=== PATIENT | female | born 1960 | race Caucasian/White ===

== ENCOUNTER 2019-08-04 13:40 | Emergency (ER) | payer SELFPAY ==
[2019-08-04 14:02] VITALS: BP 148/86; PULSE 93; TEMP 98.8; BMI 26.6
--- NOTE | 2019-08-04 14:43 | PDOC ---
History of Present Illness - General Chief Complaint: Wound Stated Complaint: INFECTION IN INDEX FINGER Time Seen by Provider: 08/04/19 14:24 - History of Present Illness Initial Comments: 08/04/19 14:39 59-year-old female with no comorbidities presents for evaluation of left second finger pain x4 days without systemic symptoms Past History - Past Medical History Allergies/Adverse Reactions: Allergies Allergy/AdvReac Type Severity Reaction Status Date / Time No Known Allergies Allergy Verified 08/04/19 13:45 Home Medications: Ambulatory Orders Oxycodone HCl/Acetaminophen [Percocet 5/325 -] 1 - 2 tab PO Q4H #20 tablet 04/08 Tamsulosin HCl [Flomax -] 0.4 mg PO DAILY #30 capsule 04/08/15 Cephalexin [Keflex] 500 mg PO QID #40 capsule 08/04/19 Sulfamethoxazole/Trimethoprim [Bactrim Ds -] 1 tab PO BID #14 tablet 08/04/19 COPD: No - Immunization History Immunization Up to Date: Yes - Psycho Social/Smoking Cessation Hx Smoking History: Never smoked Have you smoked in the past 12 months: No Hx Alcohol Use: No Drug/Substance Use Hx: No Substance Use Type: None Review of Systems - Review of Systems Musculoskeletal: Yes: See HPI *Physical Exam - Vital Signs Last Vital Signs Temp Pulse Resp BP Pulse Ox 98.8 F 93 H 18 148/86 99 08/04/19 13:45 08/04/19 13:45 08/04/19 13:45 08/04/19 13:45 08/04/19 13:45 - Physical Exam Comments: 08/04/19 14:40 There is erythema warmth tenderness with surrounding induration at the radial aspect of the left second finger just radial to the lateral nail fold. There is a large area of fluctuance no gross sensorimotor deficits the erythema does not extend proximally to the DIPJ. Neurovascular intact Medical Decision Making - Medical Decision Making 08/04/19 14:41 Under aseptic technique 5 cc of 1% lidocaine without epinephrine was used for digital block and 11 blade was used to incise the area of fluctuance a small amount of purulent material was expressed a dry sterile dressing was placed this was tolerated well Discharge - Discharge Information Problems reviewed: Yes Clinical Impression/Diagnosis: Paronychia Condition: Stable Disposition: HOME - Admission No - Additional Discharge Information Prescriptions: Cephalexin [Keflex] 500 mg PO QID #40 capsule Sulfamethoxazole/Trimethoprim [Bactrim Ds -] 1 tab PO BID #14 tablet - Follow up/Referral Referrals: Zacarias Dorsey MD [Staff Physician] - - Patient Discharge Instructions Additional Instructions: Please take the antibiotics as directed. Please keep the dressing on for the next 48 hours. In 48 hours return to the emergency room for wound check. Tylenol Motrin as directed for pain. You may follow-up with hand surgery in 1 to 2 days for further evaluation and treatment options. Again please leave the dressing on for the next 48 hours - Post Discharge Activity
== END 2019-08-04 14:59 | disposition home or self-care (01) ==
LOC: JERFT 13:40
PROC: 0J9K0ZZ Drainage of Left Hand Subcutaneous Tissue and Fascia, Open Approach (ICD-10-PCS; principal; 2019-08-04)
DX: L03.012 Cellulitis of left finger (principal)
CPT/HCPCS: 99281-25

== ENCOUNTER 2019-08-06 10:30 | Emergency (ER) | payer SELFPAY ==
[2019-08-06 10:37] VITALS: BP 129/79; PULSE 79; TEMP 98.5; BMI 30.9
[2019-08-06] MEDS ORDERED: BACITRACIN 15 GM TUBE TOPICAL OINTMENT TP ONE (10:53)
[2019-08-06] MEDS ORDERED: BACITRACIN 15 GM TUBE TOPICAL OINTMENT ONE (11:03)
--- NOTE | 2019-08-06 11:11 | PDOC ---
Suture Removal/Wound Check HPI - History of Present Illness Chief Complaint: Revisit,Wound Recheck Stated Complaint: REVISIT/INDEX FINGER WOUND Time Seen by Provider: 08/06/19 10:47 History Source: Yes: Patient Exam Limitations: Yes: No Limitations Treated at: [facility] Date of Last ED visit: 08/04/19 - Previous ED Treatment Type of procedure performed on last visit: Yes: Other (left index paronychia) Tetanus Immunization: Yes: Up to Date Past History - Past Medical History Allergies/Adverse Reactions: Allergies Allergy/AdvReac Type Severity Reaction Status Date / Time No Known Allergies Allergy Verified 08/06/19 10:37 Home Medications: Ambulatory Orders Oxycodone HCl/Acetaminophen [Percocet 5/325 -] 1 - 2 tab PO Q4H #20 tablet 04/08 Tamsulosin HCl [Flomax -] 0.4 mg PO DAILY #30 capsule 04/08/15 Cephalexin [Keflex] 500 mg PO QID #40 capsule 08/04/19 Sulfamethoxazole/Trimethoprim [Bactrim Ds -] 1 tab PO BID #14 tablet 08/04/19 COPD: No - Immunization History Immunization Up to Date: Yes - Psycho Social/Smoking Cessation Hx Smoking History: Never smoked Have you smoked in the past 12 months: No Hx Alcohol Use: No Drug/Substance Use Hx: No Substance Use Type: None Suture Removal/Wound Check PE - Physical Exam Laceration/Wound Check Symptoms: reports: Improved. denies: Pain, Fever, Chills Current Severity Level: None Location of Laceration/Wound: right: Finger (left index finger paronychia) Pain Radiation: None *Review of Systems - Review of Systems Able to Perform ROS?: Yes Constitutional: No: Chills, Fever, Malaise HEENTM: No: Symptoms Reported Respiratory: No: Symptoms reported Cardiac (ROS): No: Symptoms Reported Musculoskeletal: Yes: Symptoms Reported, See HPI, Muscle Pain (pain to swelling of left index finger) Integumentary: Yes: Symptoms Reported, See HPI, Other (paronychia to left index finger) Neurological: No: Paresthesia, Weakness, Dizziness All Other Systems: Reviewed and Negative *Physical Exam - Vital Signs Last Vital Signs Temp Pulse Resp BP Pulse Ox 98.5 F 79 16 129/79 99 08/06/19 10:34 08/06/19 10:34 08/06/19 10:34 08/06/19 10:34 08/06/19 10:34 - Physical Exam General Appearance: Yes: Nourished, Appropriately Dressed. No: Apparent Distress HEENT: positive: Normal ENT Inspection Respiratory/Chest: positive: Normal Breath Sounds. negative: Respiratory Distress, Accessory Muscle Use Cardiovascular: positive: Regular Rhythm, Regular Rate Musculoskeletal: positive: Normal Inspection, Other (improved swelling to nailbed of left index finger. ) Extremity: positive: Normal Capillary Refill Integumentary: positive: Normal Color, Other (small amount of purulent discharge to incised wound of lateral aspect of left index finger. no erythema to woun site. improved swelling to nailbed of left index finger) Neurologic: positive: Fully Oriented, Alert, Normal Response, Motor Strength /5 Medical Decision Making - Medical Decision Making 08/06/19 11:18 Patient with no significant past medical history presents for wound check of left index finger status post presenting 2 days ago with paronychia to left index finger requiring I&D. Patient reporting improvement in swelling to left index finger. Exam significant for 1 mm incision to lateral aspect of left index finger with improved swelling and small amount of purulent discharge from incision. Wound culture obtained from drainage. Improvement in paronychia. Bacitracin applied to wound and wound covered adhesive bandage. Patient advised to continue prescribed Keflex and Bactrim antibiotics and apply bacitracin twice to wound and follow-up with PCP in 5 days for reassessment. Patient stable for discharge Discharge - Discharge Information Problems reviewed: Yes Clinical Impression/Diagnosis: Paronychia Condition: Improved Disposition: HOME - Admission No - Follow up/Referral - Patient Discharge Instructions Patient Printed Discharge Instructions: How to Care for a Surgical Wound Additional Instructions: Keep applying bacitracin to wound twice a day until healed. Apply warm compress to finger 2-3 times a day as needed for swelling. Finish prescribed antibiotics. Follow-up with primary care in 5 days for recheck - Post Discharge Activity Work/Back to School Note: Back to Work
== END 2019-08-06 11:23 | disposition home or self-care (01) ==
LOC: JERFT 10:30
DX: Z48.817 Encounter for surgical aftercare following surgery on the skin and subcutaneous tissue (principal); L03.012 Cellulitis of left finger
CPT/HCPCS: 87070; 87077; 87186; 87205; 99281-25

== ENCOUNTER 2022-09-04 16:00 | Emergency (ER) | payer OTHER ==
[2022-09-04 16:58] VITALS: BP 165/101; PULSE 104; RESP 16; TEMP 98.5; BMI 32.5
[2022-09-04] MEDS ORDERED: DIPHTH,PERTUSS(ACELL),TET 0.5 ML DISP.SYRIN IM ONE ×2 (17:37→17:43)
== END 2022-09-04 17:54 | disposition home or self-care (01) ==
LOC: JERFT 16:00
PROC: 3E0234Z Introduction of Serum, Toxoid and Vaccine into Muscle, Percutaneous Approach (ICD-10-PCS; principal; 2022-09-04)
PROC: 0HQFXZZ Repair Right Hand Skin, External Approach (ICD-10-PCS; 2022-09-04)
DX: S61.411A Laceration without foreign body of right hand, initial encounter (principal); W26.8XXA Contact with other sharp object(s), not elsewhere classified, initial encounter
CPT/HCPCS: 12002-25; 90471; 90715; 99284-25

== ENCOUNTER 2022-09-13 09:56 | Emergency (ER) | payer OTHER ==
[2022-09-13 10:30] VITALS: BP 167/91; PULSE 87; RESP 18; TEMP 97.2; BMI 30.9
== END 2022-09-13 10:57 | disposition home or self-care (01) ==
LOC: JERFT 09:56
DX: S61.411A Laceration without foreign body of right hand, initial encounter (principal); Y99.9 Unspecified external cause status; Z48.02 Encounter for removal of sutures
CPT/HCPCS: 99281-25